=== PATIENT | female | born 1950 | race African-American/Black ===

== ENCOUNTER 2021-06-06 08:33 | Day surgery (SDC) | payer OTHER, BC ==
[2021-06-04 17:17] VITALS: BMI 39.3
[2021-06-06 09:37] VITALS: BP 134/57; PULSE 88; TEMP 97.8
== END 2021-06-06 10:15 | disposition home or self-care (01) ==
LOC: FASU-ENDO 08:33
PROVIDERS: ATTEND Internal Medicine Gastroenterology
PROC: 0DJD8ZZ Inspection of Lower Intestinal Tract, Via Natural or Artificial Opening Endoscopic (ICD-10-PCS; principal; 2021-06-06 09:15)
DX: Z12.11 Encounter for screening for malignant neoplasm of colon (principal); I10 Essential (primary) hypertension